=== PATIENT | male | born 1975 | race Caucasian/White ===

== ENCOUNTER → 2018-11-06 | Outpatient (CLI) | payer BC ==
[2018-11-07 13:10] LABS: APTT 40 Sec(s) (<43); Dilute Russell Viper Venom 41 Sec(s) (<44)
== END ==
LOC: LABWHC1 14:59
PROVIDERS: ATTEND Family Medicine
DX: R10.9 Unspecified abdominal pain (principal)
CPT/HCPCS: 36415; 85613; 85730